=== PATIENT | female | born 1990 ===

== ENCOUNTER 2025-09-13 11:28 | Outpatient (AMB) | payer OTHER, SELFPAY ==
--- NOTE | 2025-09-13 11:30 | A.OFFPC_ITS ---
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: No Accompanied by: Self / Same As Patient Allergies No Known Allergies Allergy (Verified 09/13/25 11:33) Medication List - Last Reconciled 09/13/25 by Darron Palacios MD methadone 100 mg PO DAILY Tobacco use date assessed: 09/13/25 Dental Screening Dental Screen Date: 09/13/25 Did you have a dental visit in the last 12 months?: Yes Did you have a dental problem in the last 6 months where you did not have access to dental care?: No Was dental information given to patient?: Patient has dentist HPI HPI Comments History of Present Illness Details History of Present Illness The patient is a 35 year old female presenting for her first adult primary care visit with complaints of restless legs and numbness of the extremities. She reports that starting about a month ago, she experienced restless legs nearly all day long, which has since decreased to once or twice a week. She notes that neither methadone nor heroin use alleviates these symptoms, and it does not seem correlated with opiate withdrawal. She also reports waking from sleep with her limbs, primarily her legs but occasionally her hands, feeling completely numb, which was occurring almost every other day but has since slowed down. The patient has a history of opioid use disorder and is currently on methadone 100 mg daily from a clinic. She reports active heroin use via insufflation. She has a history of intravenous drug use in her legs, which resulted in multiple abscesses. She has smoked tobacco since age 19, about a half to a full pack daily. She drinks alcohol infrequently, about once every six months, consuming one or two drinks per occasion. Screening questionnaires were positive for mild depression and mild anxiety, with a NICKY score of 9. The patient sees a counselor at her methadone clinic but has never seen a psychiatrist and declined intervention for these conditions at this time. The patient reports no past medical conditions or surgeries. She has never had a Pap smear. Her family history is significant for a paternal grandfather with diabetes and breast cancer on her mother's side, affecting her grandmother and three of her aunts. Medical History: - Opioid use disorder, currently on meth adone maintenance therapy - History of leg abscesses secondary to intravenous drug use - Mild depression, per screening - Mild anxiety, per screening Surgical History: - No history of surgeries reported Medications: - Methadone 100 mg for opioid use disord er Family History: - Diabetes: Paternal grandfather - Breast Cancer: Maternal grandmother an d three maternal aunts Diagnostic Results: - NICKY-7 score: 9, consistent with mild a nxiety - PHQ screen: Positive for mild depressi on Social History - Tobacco Use: Smokes a half-pack to a p ack of cigarettes per day since age 19. - Alcohol Use: Drinks alcohol approximat roxana once every six months, consuming one to two drinks per occasion. - Substance Use: Currently on methadone for opioid use disorder. Actively uses heroin via sniffing. Denies use of whippets. - Employment: Works for an [employer] Medical History (Updated 09/13/25 @ 11:59 by Darron Palacios MD) Annual physical exam Depression with anxiety Opioid use disorder Tobacco use disorder, continuous Restless legs Family History (Updated 09/13/25 @ 11:36 by Pattie Rashid CMA) Father Substance abuse Brother Substance abuse Social History Housing: House Patient Tobacco Use Status: Current everyday Tobacco user Cigarette Packs Per Day: 0.5 Cigarettes Per Day: 10 Years Smoked: 16 years e-Cigarette/Vaping Use: Never Used service: No Current occupational status: employed Current occupation: [employer] Questionnaire PHQ-9 Over the last 2 weeks, how often have you been bothered by any of the following problems? 1. Little interest or pleasure in doing things: nearly every day 2. Feeling down, depressed, or hopeless: more than half the days 3. Trouble falling or staying asleep, or sleeping too much: nearly every day 4. Feeling tired or having little energy: not at all 5. Poor appetite or overeating: more than half the days 6. Feeling bad about yourself - or that you are a failure or have let yourself or your family down: more than half the days 7. Trouble concentrating on things, such as reading the newspaper or watching television: not at all 8. Moving or speaking so slowly that other people could have noticed. Or the opposite - being so fidgety or restless that you have been moving around a lot more than usual: not at all 9. Thoughts that you would be better off or of hurting yourself in some way: not at all Total score: 12 Depression Screening Interpretation: Positive Depression Screening Done: Yes 42213 - PHQ-9 Billing: Yes Source: Developed by Drs. Андрей Domínguez, Yazan Isidro and colleagues, with an educational yanet from [employer]. AUDIT C Alcohol Use Questionnaire (AUDIT-C) 1. How often do you have a drink containing alcohol?: Monthly or less 2. How many drinks containing alcohol do you have on a typical day when you are drinking?: 1 or 2 3. How often do you have six or more drinks on one occasion?: Never Total Score: 1 Score Reviewed/Action Taken: Yes NICKY-7 AMB Questionnaire NICKY-7 Date NICKY - 7 assessed: 09/13/25 Feeling nervous, anxious, or on edge: 2 = More than half the days Not being able to stop or control worryin = More than half the days Worrying too much about different things: 2 = More than half the days Trouble relaxin = Several days Being so restless that it is hard to sit still: 0 = Not at all Becoming easily annoyed or irritable: 0 = Not at all Feeling afraid as if something awful might happen: 2 = More than half the days Total NICKY-7 score (0-4 normal; 5-9 mild; 10-14 moderate; 15-21 severe): 9 Source: Developed by Drs. Андрей Domínguez, Yazan Isidro and colleagues, with an educational yanet from [employer]. NICKY-7 Assessment Billing NICKY-7 Assessment Tool: NICKY-7 Assessment 75723 Review of Systems Narrative Review of Systems - Neurological: Reports restless legs and waking up with numbness in her legs and occasionally hands. - Musculoskeletal: Denies any pain in the legs or back pain. - Psychiatric: Acknowledges symptoms of mild depression and anxiety but denies any thoughts of self-harm. - All other systems reviewed are negative. All systems reviewed & are unremarkable except as reviewed in HPI and above Physical exam (Primary Care) Vital Signs: Last Vital Signs Temp 97.3 F 09/13/25 11:31 Pulse 86 09/13/25 11:31 Resp 16 09/13/25 11:31 BP 110/74 09/13/25 11:31 Pulse Ox 97 09/13/25 11:31 Oxygen Delivery Method Room Air 09/13/25 11:31 Care Plan Goal for BP management: Stable BMI result Body Mass Index 31.8 Tobacco/Smoking Status: Tobacco use Status Tobacco use date assessed 09/13/25 09/13/25 11:38 Patient Tobacco Use Status Current everyday Tobacco 09/13/25 11:38 e-Cigarette/Vaping Use Never Used 09/13/25 11:38 PHQ-9: PHQ-9 Score PHQ-9: Total score 12 09/13/25 11:45 Depression Screening Interpretation: Positive Narrative Physical Exam General: +Alert and oriented, Well nourished, No acute distress. Eye: Pupils are equal, round and reactive to light, Intact accommodation, Extraocular movements are intact, Normal conjunctiva, Vision unchanged. HENT: Normocephalic, Atraumatic, Tympanic membranes are clear, Normal hearing, Oral mucosa is moist, No pharyngeal erythema, Ear canals patent. Respiratory: Lungs CTA bilaterally, No wheeze, Respirations are non-labored. Cardiovascular: Regular rate, Regular rhythm, S1 auscultated, S2 auscultated, No murmur, Good pulses equal in all extremities, Normal peripheral perfusion, No edema. Gastrointestinal: Soft, Non-tender, Non-distended, Normal bowel sounds, No organomegaly. Musculoskeletal: Normal range of motion, Normal strength, No tenderness, No swelling, No deformity, Normal gait. Integumentary: Warm, Dry, Edom, Intact. Neurologic: Alert, Oriented, Normal sensory, Normal motor function, No focal defects, Cranial Nerves II-XII are grossly intact, Normal deep tendon reflexes. Psychiatric: Cooperative, Appropriate mood & affect, Normal judgment, Status positive for depression and mild anxiety. Coding Level of Care Code New Pt Level 3 (04474) New Pt Prev Care 18-39yr(96045 Diagnoses Restless legs G25.81 Tobacco use disorder, continuous F17.209 Opioid use disorder F11.90 Depression with anxiety F41.8 Annual physical exam Z00.00 Additional Codes NICKY-7 Assessment Billing - NICKY-7 Assessment Tool: NICKY-7 Assessment 75908 ([id number]) PHQ-9 - 99999 - PHQ-9 Billing: Yes ([id number]) Comment [id number] Assessment & Plan Assessment & Plan (1) Restless legs: Comment: - The patient's symptoms could be due to several factors, including low hemoglobin, nerve damage from prior substance use and abscesses, diabetes, or vitamin deficiencies such as B12 and folate. - Nerve compression from tight clothing (meralgia paresthetica) is also a possibility. - Plan includes ordering labs (CBC, electrolytes, thyroid, HbA1c, hepatitis sc reen, HIV, RPR, vitamin D, B12, folate) and advising the patient to wear looser clothing and keep a symptom diary. - If labs are normal, an EMG and neurology consultation will be considered at the 4-week follow-up. Code(s): G25.81 - Restless legs syndrome Category: Medical (2) Tobacco use disorder, continuous: Comment: - The patient was counseled on the irreversible damage caused by smoking and strongly advised to quit. Code(s): F17.209 - Nicotine dependence, unspecified, with unspecified nicotine-induced disorders Category: Medical (3) Opioid use disorder: Comment: - The patient is maintained on methadone but continues active heroin use. - Her care through the methadone clinic, including counseling, will continue. Code(s): F11.90 - Opioid use, unspecified, uncomplicated Category: Medical (4) Depression with anxiety: Comment: - The patient screened positive for mild depression and anxiety but declined further intervention at this time. - Will continue to monitor. Code(s): F41.8 - Other specified anxiety disorders Category: Medical (5) Annual physical exam: Comment: - As this is the patient's first adult wellness visit and she has never had a Pap smear, a referral will be sent to a product development assistant for cervical cancer screening. - Her COVID-19 and flu vaccinations are up to date. Code(s): Z00.00 - Encounter for general adult medical examination without abnormal findings Category: Medical Plan: Health Maintenance: - Vaccinations: The patient reports being up to date on her COVID-19 and flu immunizations for the year. - Cervical Cancer Screening: The patient has never had a Pap smear. A referral to gynecology will be placed for screening. - Substance Use Counseling: The patient was strongly advised to stop smoking to prevent irreversible lung damage. Patient was informed and verbally consented to the use of an ambient scribe for clinic note documentation during this visit. Vital signs reviewed. Comprehensive history, review of systems, and physical exam completed. Medications, allergies, and problem list reviewed and updated. Counseling provided on nutrition, regular exercise, sleep hygiene, and moderation of alcohol use. Discussed age-appropriate screenings (mammogram, colonoscopy, Pap, bone density) and immunizations (flu, COVID, shingles, Tdap). Screened for depression, fall risk, and home safety; no current concerns. Discussed stress management, dental and vision care, and importance of ongoing preventive follow-up. Routine labs ordered for metabolic and lipid screening. Patient educated on healthy lifestyle and agrees with the plan. Plan I discussed with the patient her primary complaints of restless legs and numbness in the extremities. I explained that there are multiple potential causes for these symptoms, including anemia, nerve damage from her prior IV drug use and abscesses, diabetes, vitamin deficiencies, and nerve compression. To investigate these possibilities, I have ordered a comprehensive panel of blood tests. I advised her to keep a symptom diary and to try wearing looser clothing. We will review these results at a follow-up visit in four weeks, and if the tests are normal, we will consider ordering an EMG and a neurology referral. We also discussed preventative care, and I emphasized the importance of smoking cessation due to the irreversible damage it can cause. A referral has been placed for a Pap smear with a product development assistant, as she has never had one. The patient acknowledged understanding of the plan. Orders: Orders Hepatitis A,B,C Profile Today Z00.00 - Encounter for general adult medical examination without abnormal findings Lipid Panel Today Z00.00 - Encounter for general adult medical examination without abnormal findings Syphilis Screen Today Z00.00 - Encounter for general adult medical examination without abnormal findings Vitamin D 25-OH Total Today Z00.00 - Encounter for general adult medical examination without abnormal findings Complete Blood Count Auto Diff Today Z00.00 - Encounter for general adult medical examination without abnormal findings Comprehensive Met. Panel Today Z00.00 - Encounter for general adult medical examination without abnormal findings Hemoglobin A1c Today Z00.00 - Encounter for general adult medical examination without abnormal findings HIV Ab/Ag Today Z00.00 - Encounter for general adult medical examination without abnormal findings Microalbumin, Random (w Creat) Today Z00.00 - Encounter for general adult medical examination without abnormal findings TSH reflex Free T4 Today Z00.00 - Encounter for general adult medical examination without abnormal findings Vitamin B12 and Folate Today Z00.00 - Encounter for general adult medical examination without abnormal findings Referrals OFFICE MACHINE SERVICE SUPERVISOR Referral Z01.419 - Encounter for gynecological examination (general) (routine) without abnormal findings Patient Instructions: - You must stop smoking cigarettes to prevent serious and permanent damage to your lungs. - Go to the lab to have your blood drawn for the tests we discussed. - Keep a written record of when you experience restless legs or numbness, noting what you are doing, your body position, and what you are wearing. - Try wearing loose-fitting clothes to see if it helps with your symptoms. - A referral has been made for you to see a product development assistant for a Pap smear. - Please schedule a follow-up appointment to see me in four weeks to review your lab results.
[2025-09-13 11:31] VITALS: BP 110/74; PULSE 86; RESP 16; TEMP 36.3; O2SAT 97; BMI 31.8
== END 2025-09-13 11:59 | disposition home or self-care (01) ==
LOC: HO.HMCHD 11:28
PROVIDERS: Visit Provider Student in an Organized Health Care Education/Training Program
DX: Z00.00 Encounter for general adult medical examination without abnormal findings (principal); G25.81 Restless legs syndrome; F41.8 Other specified anxiety disorders; F17.210 Nicotine dependence, cigarettes, uncomplicated; F11.90 Opioid use, unspecified, uncomplicated

== ENCOUNTER 2025-09-13 11:28 | Outpatient (REF) | payer OTHER, SELFPAY ==
[2025-09-13 13:08] LABS: MANUAL DIFF FLAG NO
[2025-09-13 13:58] LABS: Hematocrit 43.5 % (37.0-47.0); Hemoglobin 14.5 g/dl (12.0-16.0); Imm Gran Abs Auto 0.02 X10*3/uL (0.00-0.03); Imm Gran Pct Auto 0.2 % (0.0-0.4); Lymphocytes Absolute Auto 3.9 X10*3/uL (1.2-4.9); Mean Corpuscular HGB Conc 33.3 g/dl (31.0-35.0); Mean Corpuscular Hemoglobin 30.5 pg (27.0-33.0); Mean Corpuscular Volume 91.4 fL (80.0-98.0); NRBC Abs Auto 0.000 X10*3/uL (0.0-0.012); NRBC Pct Auto 0.0 /100WBC (0.0-0.2); Platelet Count 317 X10*3/uL (160-400); Red Blood Count 4.76 X10*6/uL (4.20-5.50); White Blood Count 9.8 X10*3/uL (4.8-10.8)
[2025-09-13 14:34] LABS: Alanine Aminotransferase 16 U/L (0-31); Albumin Level 4.4 g/dL (3.5-5.0); Alkaline Phosphatase 61 U/L (39-117); Anion Gap 10 (12-20); Aspartate Amino Transferase 28 U/L (5-31); Blood Urea Nitrogen 7 mg/dL (9-16); Calcium 8.9 mg/dL (8.4-10.2); Carbon Dioxide 22 mmol/L (22-29); Chloride 108 mmol/L (96-108); Cholesterol 172 mg/dL (<200); Estimated Glomerular Filt Rate > 60; HDL Cholesterol 57 mg/dL (>40); Potassium 4.1 mmol/L (3.3-5.1); Sodium 136 mmol/L (135-145); Total Protein 7.6 g/dL (6.5-8.0); Triglycerides 73 mg/dL (<150)
[2025-09-13 14:56] LABS: Folate 9.4 ng/mL (> or = 4.0); Vitamin B12 540 pg/mL (200-900)
[2025-09-13 17:03] LABS: Free T4 (Free Thyroxine) 0.91 ng/dL (0.71-1.85)
[2025-09-14 07:39] LABS: Syphilis Screen Nonreactive (Nonreactive)
[2025-09-14 08:22] LABS: HBS Num1 1.46 mIU/mL (0-7.99); HBc Num1 0.11 S/CO (0.00-0.79); HBsAGNum1 0.32 S/CO (0.00-0.99); HIV Num 1 0.06 S/CO (0.00-0.99); Hepatitis A Antibody IgM 0.24 Index (0-0.79); Hepatitis B Surface Antigen Negative (Negative); ~HepC Num1 0.09 S/CO (0.00-0.79); ~Hepatitis A Antibody IgM Nonreactive (Nonreactive); ~Hepatitis B Surface Antibody NONREACTIVE (Nonreactive); ~Hepatitis C Antibody Nonreactive (Nonreactive)
== END 2025-09-13 11:29 | disposition home or self-care (01) ==
LOC: HO.10HDL 11:28
PROVIDERS: Visit Provider Student in an Organized Health Care Education/Training Program
DX: Z00.00 Encounter for general adult medical examination without abnormal findings (principal); G25.81 Restless legs syndrome; F11.90 Opioid use, unspecified, uncomplicated; F41.8 Other specified anxiety disorders; F17.209 Nicotine dependence, unspecified, with unspecified nicotine-induced disorders
CPT/HCPCS: 36415; 80053; 80061; 82043; 82306; 82570; 82607; 82746; 83036; 84439; 84443; 85025; 86704; 86706; 86709; 86780; 86803; 87340; 87389